=== PATIENT | female | born 1990 | race African-American/Black ===

== ENCOUNTER 2016-10-16 19:32 | Emergency (ER) | payer BC, OTHER ==
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
[2016-10-16 23:32] VITALS: BP 112/65
== END 2016-10-16 23:32 | disposition home or self-care (01) ==
LOC: ER 19:32
DX: M54.2 Cervicalgia (principal); M54.6 Pain in thoracic spine; M54.5 Low back pain; R51 Headache; V44.5XXA Car driver injured in collision with heavy transport vehicle or bus in traffic accident, initial encounter; Y92.410 Unspecified street and highway as the place of occurrence of the external cause; F17.200 Nicotine dependence, unspecified, uncomplicated
CPT/HCPCS: 99284; 87070; 87880; 72110; 72070; 72125; L0120

== ENCOUNTER 2017-01-03 08:31 | Emergency (ER) | payer MEDICAID ==
--- NOTE | 2017-01-03 09:52 | ER Document Report ---
ED Extremity Problem, Lower - General Chief Complaint: Ankle Swelling Stated Complaint: ANKLE SWELLING Mode of Arrival: Ambulatory Information source: Patient TRAVEL OUTSIDE OF THE [place] IN LAST 30 DAYS: No - HPI Notes: Patient arrives with complaints of foot and ankle swelling for approximately one month. She states that it initially was intermittent but now states tends to be constant. Swelling does improve if she elevates her feet. She denies any difficulty with urination. She denies any chest pain or shortness of breath. She denies any known history of congestive heart failure. She denies any pain in the legs. No redness. No history of DVT or PE. Patient also states that she's had some sore nipples for the last few days. She denies any nipple discharge or redness. No injury to the nipples. She denies any abdominal pain. No nausea vomiting diarrhea. No vaginal bleeding or discharge. No rash. Patient denies any other complaints at this - Related Data Allergies/Adverse Reactions: No Known Allergies Allergy (Verified 01/03/17 08:41) Home Medications: Current Home Medications Alprazolam [Xanax] 1 mg PO DAILY 01/03/17 [History] Buprenorphine HCl [Belbuca] 150 mcg BC DAILY 01/03/17 [History] Oxycodone HCl/Acetaminophen [Oxycodone-Acetaminophen 10-325] 1 each PO Q6HP PRN 01/03/17 [History] Past Medical History - Social History Smoking Status: Current Every Day Smoker Chew tobacco use (# tins/day): No Frequency of alcohol use: Rare Drug Abuse: None Family History: Arthritis, Hyperlipidemia, Hypertension, Thyroid Disfunction Patient has suicidal ideation: No Patient has homicidal ideation: No Neurological Medical History: Reports: Hx Migraine - Never been diagnosed as having migraine headaches by [facility] provider Renal/ Medical History: Denies: Hx Peritoneal Dialysis Psychiatric Medical History: Reports: Hx Anxiety, Hx Depression Past Surgical History: Reports: Hx Section - x1 - Immunizations Hx Diphtheria, Pertussis, Tetanus Vaccination: Yes Review of Systems - Review of Systems -: Yes All other systems reviewed and negative Physical Exam - Vital signs Vitals: Temp Pulse Resp BP Pulse Ox 98.4 F 101 H 20 129/84 H 99 01/03/17 08:41 01/03/17 08:41 01/03/17 08:41 01/03/17 08:41 01/03/17 08:41 - General General appearance: Appears well, Alert - HEENT Head: Normocephalic, Atraumatic Eyes: Normal Pupils: PERRL Mucous membranes: Normal Pharynx: Normal - Respiratory Respiratory status: No respiratory distress Breath sounds: Normal - Cardiovascular Rhythm: Regular Heart sounds: Normal auscultation Murmur: No - Abdominal Inspection: Normal Tenderness: Nontender - Extremities General upper extremity: Normal inspection, Nontender, Normal color, Normal ROM , Normal temperature General lower extremity: Normal inspection, Nontender, Edema - +1 edema to the bilateral anterior distal arriaga. No erythema. No calf tenderness., Normal color , Normal ROM, Normal temperature, Normal weight bearing. No: Celina's sign - Neurological Neuro grossly intact: Yes Cognition: Normal Orientation: AAOx4 Charlotte Coma Scale Eye Opening: Spontaneous Charlotte Coma Scale Verbal: Oriented [place] Coma Scale Motor: Obeys Commands Crystal Coma Scale Total: 15 Speech: Normal Motor strength normal: LUE, RUE, LLE, RLE Sensory: Normal - Psychological Associated symptoms: Normal affect, Normal mood - Skin Skin Temperature: Warm Skin Moisture: Dry Skin Color: Normal Notes: Breast exam shows no obvious abnormalities. There is no nipple discharge. No tenderness to palpation of the nipples. No erythema. No mass. Course - Re-evaluation Re-evalutation: 01/03/17 11:13 Patient is nontoxic appearing with stable vitals. Patient arrives with complaints of lower leg swelling for the last several weeks. She does complain some nipple tenderness. Her exam is benign aside from some mild edema to the lower extremities. Hisposterior swelling or tenderness, she has no DVT risk factors. Patient denies any chest pain or shortness of breath. She has benign labs with no signs of renal failure. Her test is negative. No protein in her urine. The patient chest x-ray shows no signs of effusion. The patient will be discharged home with what is likely to be dependent edema. She' ll be instructed to elevate her legs when possible. Follow-up with her primary care doctor at the next available appointment, sooner for worsening swelling, chest pain, shortness of breath, fever, any further concerns. The patient is noted to have elevated blood pressure during today's emergency department visit. The patient was informed of this finding. The patient was instructed that this may be related to pre-hypertension and requires further evaluation with a primary care provider. The patient has no hypertensive symptoms at this time. The patient's emergency department workup and current diagnosis were explained to the patient and or family. Follow-up instructions were provided. Medications if prescribed were discussed. Instructions for when to return to the emergency department including specific worrisome symptoms were discussed with the patient and/or family. - Vital Signs Vital signs: Temp Pulse Resp BP Pulse Ox 98.4 F 101 H 20 129/84 H 99 01/03/17 08:41 01/03/17 08:41 01/03/17 08:41 01/03/17 08:41 01/03/17 08:41 - Laboratory Result Diagrams: 01/03/17 10:42 01/03/17 10:03 Laboratory results interpreted by me: 01/03/17 10:42 Hgb 11.4 L Hct 33.7 L - Diagnostic Test Radiology reviewed: Image reviewed, Reports reviewed - Chest x-ray negative Discharge - Discharge Clinical Impression: Leg edema Qualifiers: Laterality: bilateral Qualified Code(s): R60.0 - Localized edema Condition: Stable Disposition: HOME, SELF-CARE Instructions: Dependent Edema ([facility]) Additional Instructions: Try to elevate your legs as much as possible. Her compression hose. Follow up with your doctor at the next available appointment for reevaluation. Follow-up sooner for increased swelling, chest pain, shortness of breath, fever, redness, any further concerns. Your blood pressure was elevated during today's visit. Have this rechecked with your doctor. Forms: Elevated Blood Pressure
[2017-01-03 10:07] LABS: APPEARANCE,URINE SLIGHTLY-CLOUDY; BILIRUBIN,URINE NEGATIVE (NEGATIVE); GLUCOSE, URINE NEGATIVE (NEGATIVE); KETONES,URINE NEGATIVE (NEGATIVE); LEUKOCYTE ESTERASE,URINE NEGATIVE (NEGATIVE); NITRITE,URINE NEGATIVE (NEGATIVE); PROTEIN,URINE NEGATIVE (NEGATIVE); URINE SPECIFIC GRAVITY 1.024; UROBILINOGEN,URINE NEGATIVE mg/dL (<2.0)
[2017-01-03 10:42] LABS: ALANINE AMINOTRANSFERASE 28 U/L (9-52); ALBUMIN 3.6 g/dL (3.5-5.0); ALKALINE PHOSPHATASE 92 U/L (38-126); ANION GAP 10 (5-19); ASPARTATE AMINO TRANSFERASE 21 U/L (14-36); BILIRUBIN,DIRECT 0.2 mg/dL (0.0-0.4); BILIRUBIN,TOTAL 0.3 mg/dL (0.2-1.3); BLOOD UREA NITROGEN 13 mg/dL (7-20); CALCIUM 9.2 mg/dL (8.4-10.2); CARBON DIOXIDE 25 mmol/L (22-30); CHLORIDE 105 mmol/L (98-107); CREATININE RESULT 0.69 mg/dL (0.52-1.25); GLUCOSE 83 mg/dL (75-110); POTASSIUM 4.4 mmol/L (3.6-5.0); SODIUM 140.3 mmol/L (137-145); TOTAL PROTEIN 6.4 g/dL (6.3-8.2)
[2017-01-03 11:00] LABS: HEMATOCRIT 33.7 % (36.0-47.0); HEMOGLOBIN 11.4 g/dL (12.0-15.5); HGB HCT DIFFERENCE 0.5; MEAN CORPUSCULAR HEMOGLOBIN 29.6 pg (27.0-33.4); MEAN CORPUSCULAR HGB CONC 33.8 g/dL (32.0-36.0); MEAN CORPUSCULAR VOLUME 88 fl (80-97); RED BLOOD COUNT 3.85 10^6/uL (3.72-5.28); RED CELL DISTRIBUTION WIDTH 12.8 % (11.5-14.0); WHITE BLOOD COUNT 7.7 10^3/uL (4.0-10.5)
[2017-01-03 11:31] VITALS: BP 115/64
== END 2017-01-03 11:30 | disposition home or self-care (01) ==
LOC: ER 08:31
DX: R60.0 Localized edema (principal); N64.59 Other signs and symptoms in breast; F17.200 Nicotine dependence, unspecified, uncomplicated; R03.0 Elevated blood-pressure reading, without diagnosis of hypertension
CPT/HCPCS: 36415; 71020; 80053; 81001; 81025; 85027; 99283

== ENCOUNTER 2018-02-01 19:11 | Emergency (ER) | payer MEDICAID ==
[2018-02-01 19:28] VITALS: BP 128/65
--- NOTE | 2018-02-01 20:09 | ER Document Report ---
HPI - HPI Patient complains to provider of: left dry eye, then watered Onset: This afternoon - at work Pain Level: 3 Context: 27 yo contact lens weared female got dry left eye, then watering, then felt like somehing in eye, irritation., rubbed at work. got off work at [employer], took contact out. used cool and comfort drops with contact out, then went to sleep. When woke up it was the same, worse with light, better in the dark. Upper lid swelling Pt put contact back in so she could drive here. Associated Symptoms: None Exacerbated by: Other - rubbing left eye Relieved by: Denies - ROS ROS below otherwise negative: Yes Systems Reviewed and Negative: Yes All other systems reviewed and negative - REPRODUCTIVE Reproductive: DENIES: : Past Medical History - General Information source: Patient - Social History Smoking Status: Unknown if Ever Smoked Frequency of alcohol use: None Drug Abuse: None Lives with: Family Family History: Arthritis, Hyperlipidemia, Hypertension, Thyroid Disfunction Neurological Medical History: Reports: Hx Migraine - Never been diagnosed as having migraine headaches by [facility] provider Renal/ Medical History: Denies: Hx Peritoneal Dialysis Psychiatric Medical History: Reports: Hx Anxiety, Hx Depression Past Surgical History: Reports: Hx Section - x1 - Immunizations Hx Diphtheria, Pertussis, Tetanus Vaccination: Yes Vertical Provider Document - CONSTITUTIONAL Agree With Documented VS: Yes Exam Limitations: No Limitations General Appearance: No Apparent Distress - INFECTION CONTROL TRAVEL OUTSIDE OF THE [place] IN LAST 30 DAYS: No - HEENT HEENT: Conjuctival Injection - left, Normocephalic, PERRLA Notes: fluorescein uptake right eye at 11 oclock, round. corneal ulcer. - NECK Neck: Supple. negative: Lymphadenopathy-Left, Lymphadenopathy-Right Course - Re-evaluation Re-evalutation: 02/01/18 20:56 visual acuity 20/25 each eye 02/01/18 20:56 - Vital Signs Vital signs: Temp Pulse Resp BP Pulse Ox 99.1 F 72 16 128/65 H 99 02/01/18 19:27 02/01/18 19:27 02/01/18 19:27 02/01/18 19:27 02/01/18 19:27 Discharge - Discharge Clinical Impression: Corneal ulcer Qualifiers: Laterality: left Qualified Code(s): H16.002 - Unspecified corneal ulcer, left eye Condition: Good Disposition: HOME, SELF-CARE Instructions: Ketorolac Tromethamine Eye Drops ([facility]), Corneal Ulceration ([facility]) , Eyedrop Use ([facility]) Additional Instructions: no contact in the left eye besivance 1 drop left eye three times per day for 7 days ketoralac 1 drop left eye three times per day for 2 days see your eye doctor on saturday return to er if eye worsens before saturday Forms: Return to Work Referrals: TERRY SIMMONS, OD [NO LOCAL MD] - 02/03/18
[2018-02-01] MEDS ORDERED: TETRACAINE HCL 0.5% OPH SOLN 2 ML OS ONE (20:14)
[2018-02-01] MEDS ORDERED: BESIFLOXACIN HCL 0.6% OPH SUSP 5 ML BOTTLE OS ONE (21:03)
[2018-02-01] MEDS ORDERED: KETOROLAC TROMETHAMINE 0.45% 4 DROP/0.4 ML DROPERETTE OS ONE (21:04)
== END 2018-02-01 21:33 | disposition home or self-care (01) ==
LOC: ER 19:11
DX: H16.002 Unspecified corneal ulcer, left eye (principal); H57.8 Other specified disorders of eye and adnexa
CPT/HCPCS: 99283; J3490

== ENCOUNTER → 2018-06-05 | Outpatient (CLI) | payer SELFPAY ==
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
== END ==
LOC: OD 09:17
PROVIDERS: ATTEND Obstetrics & Gynecology
DX: S66.911A Strain of unspecified muscle, fascia and tendon at wrist and hand level, right hand, initial encounter (principal)

== ENCOUNTER 2019-12-07 17:15 | Emergency (ER) | payer BC ==
[2019-12-07] MEDS ORDERED: ASPIRIN 81 MG TABLET, CHEWABLE PO ONE (17:26)
--- NOTE | 2019-12-07 17:26 | ER Document Report ---
ED Medical Screen (RME) - General Chief Complaint: Chest Pain Stated Complaint: CHEST PAIN Time Seen by Provider: 12/07/19 17:19 Primary Care Provider: MIKE ESCOBAR MD [Primary Care Provider] - Follow up as needed Mode of Arrival: Ambulatory Information source: Patient Notes: 29-year-old female presented to ED for complaint of right chest pain on and off for a week. She states for the last couple hours she has had a squeezing pain level 3 that is not getting better. She stayed up till today it was just kind of a gnawing pain she denies any cough or congestion or any other symptoms. She denies any radiation of the pain. She denies any shortness of breath. She states she does smoke 4 cigarettes a day does not use alcohol or drugs. I have greeted and performed a rapid initial assessment of this patient. A comprehensive ED assessment and evaluation of the patient, analysis of test results and completion of medical decision making process will be conducted by an additional ED providers. TRAVEL OUTSIDE OF THE [place] IN LAST 30 DAYS: No - Related Data Allergies/Adverse Reactions: No Known Allergies Allergy (Verified 02/01/18 19:17) Past Medical History Neurological Medical History: Reports: Hx Migraine - Never been diagnosed as having migraine headaches by [facility] provider Renal/ Medical History: Denies: Hx Peritoneal Dialysis Psychiatric Medical History: Reports: Hx Anxiety, Hx Depression Past Surgical History: Reports: Hx Section - x1 - Immunizations Hx Diphtheria, Pertussis, Tetanus Vaccination: Yes Doctor's Discharge - Discharge Referrals: MIKE ESCOBAR MD [Primary Care Provider] - Follow up as needed
--- NOTE | 2019-12-07 18:18 | RADIOLOGY REPORT (SQ) ---
EXAM DESCRIPTION: CHEST 2 VIEWS COMPLETED DATE/TIME: 12/07/2019 5:37 pm REASON FOR STUDY: chest pain right COMPARISON: 01/03/2017 EXAM PARAMETERS: NUMBER OF VIEWS: two views TECHNIQUE: Digital Frontal and Lateral radiographic views of the chest acquired. RADIATION DOSE: NA LIMITATIONS: none FINDINGS: LUNGS AND PLEURA: No opacities, masses or pneumothorax. No pleural effusion. MEDIASTINUM AND HILAR STRUCTURES: No masses or contour abnormalities. HEART AND VASCULAR STRUCTURES: Heart normal size. No evidence for failure. BONES: No acute findings. HARDWARE: None in the chest. OTHER: No other significant finding. IMPRESSION: NO ACUTE RADIOGRAPHIC FINDING IN THE CHEST. TECHNICAL DOCUMENTATION: JOB ID: [id number] [employer]- All Rights Reserved Reading location - IP/workstation name: [email or web address]
[2019-12-07 18:35] LABS: ABSOLUTE EOSINOPHILS # (AUTO) 0.1 10^3/uL (0.0-0.6); ABSOLUTE LYMPHOCYTES (AUTO) 3.1 10^3/uL (0.5-4.7); ABSOLUTE MONOCYTES (AUTO) 0.5 10^3/uL (0.1-1.4); ABSOLUTE NEUT (AUTO) 4.9 10^3/uL (1.7-8.2); BASOPHILS % (AUTO) 0.2 % (0-2); EOSINOPHILS % (AUTO) 1.2 % (0-6); HEMATOCRIT 37.3 % (36.0-47.0); HEMOGLOBIN 12.7 g/dL (12.0-15.5); LYMPHOCYTES % (AUTO) 36.2 % (13-45); MEAN CORPUSCULAR HEMOGLOBIN 30.7 pg (27.0-33.4); MEAN CORPUSCULAR HGB CONC 33.9 g/dL (32.0-36.0); MEAN CORPUSCULAR VOLUME 90 fl (80-97); MONOCYTES % (AUTO) 5.6 % (3-13); PLATELET COUNT 234 10^3/uL (150-450); RED BLOOD COUNT 4.13 10^6/uL (3.72-5.28); RED CELL DISTRIBUTION WIDTH 12.7 % (11.5-14.0); SEGMENTED NEUTROPHILS % (AUTO) 56.8 % (42-78); TOTAL CELLS COUNTED % (AUTO) 100 %; WHITE BLOOD COUNT 8.6 10^3/uL (4.0-10.5)
[2019-12-07 18:48] LABS: ALBUMIN 4.2 g/dL (3.5-5.0); ALKALINE PHOSPHATASE 74 U/L (38-126); ANION GAP 6 (5-19); ASPARTATE AMINO TRANSFERASE 25 U/L (14-36); BILIRUBIN,DIRECT 0.2 mg/dL (0.0-0.4); BILIRUBIN,TOTAL 0.3 mg/dL (0.2-1.3); BLOOD UREA NITROGEN 14 mg/dL (7-20); CALCIUM 9.3 mg/dL (8.4-10.2); CARBON DIOXIDE 30 mmol/L (22-30); CHLORIDE 104 mmol/L (98-107); GLUCOSE 101 mg/dL (75-110); POTASSIUM 4.2 mmol/L (3.6-5.0); TOTAL PROTEIN 7.5 g/dL (6.3-8.2)
[2019-12-07] MEDS ORDERED: NAPROXEN 250 MG TABLET PO ONE (20:13)
--- NOTE | 2019-12-07 20:15 | ER Document Report ---
ED General - General Chief Complaint: Chest Pain Stated Complaint: CHEST PAIN Time Seen by Provider: 12/07/19 17:19 Primary Care Provider: MIKE ESCOBAR MD [Primary Care Provider] - Follow up as needed Mode of Arrival: Ambulatory Information source: Patient TRAVEL OUTSIDE OF THE [place] IN LAST 30 DAYS: No - HPI Onset: Other - over the last several days Onset/Duration: Gradual Quality of pain: No pain Severity: Mild Pain Level: 1 Associated symptoms: None Exacerbated by: Movement, Other - movement of chest, twisting motion, bending over, coughing, taking deep breaths Relieved by: Remaining still Similar symptoms previously: No Recently seen / treated by doctor: No Notes: 29 year old female with no significant PMH here for several days of right sided chest wall / chest pain which she says started after lifting some heavy boxes. The patient denies fevers, chills, sweats, radiation of chest pain, nausea, vomiting, productive cough. The patient took an aspirin at home without much relief. The patient has no family history of CAD or PE. - Related Data Allergies/Adverse Reactions: No Known Allergies Allergy (Verified 02/01/18 19:17) Past Medical History - General Information source: Patient - Social History Smoking Status: Current Every Day Smoker Chew tobacco use (# tins/day): No Drug Abuse: None Family History: Arthritis, Hyperlipidemia, Hypertension, Thyroid Disfunction Patient has suicidal ideation: No Patient has homicidal ideation: No Neurological Medical History: Reports: Hx Migraine - Never been diagnosed as having migraine headaches by [facility] health provider Renal/ Medical History: Denies: Hx Peritoneal Dialysis Psychiatric Medical History: Reports: Hx Anxiety, Hx Depression Past Surgical History: Reports: Hx Section - x1 - Immunizations Hx Diphtheria, Pertussis, Tetanus Vaccination: Yes Review of Systems - Review of Systems Constitutional: No symptoms reported EENT: No symptoms reported Cardiovascular: Chest pain Respiratory: No symptoms reported Gastrointestinal: No symptoms reported Genitourinary: No symptoms reported Female Genitourinary: No symptoms reported Musculoskeletal: No symptoms reported Skin: No symptoms reported Hematologic/Lymphatic: No symptoms reported Neurological/Psychological: No symptoms reported -: Yes All other systems reviewed and negative Physical Exam - Vital signs Vitals: Temp Pulse Resp BP Pulse Ox 97.8 F 74 18 119/67 99 12/07/19 17:20 12/07/19 17:20 12/07/19 17:20 12/07/19 17:20 12/07/19 17:20 - Notes Notes: GENERAL: Well-appearing, well-nourished and in no acute distress. HEAD: Atraumatic, normocephalic. EYES: Pupils equal round and reactive to light, extraocular movements intact, sclera anicteric, conjunctiva are normal. ENT: Nares patent, oropharynx clear without exudates. Moist mucous membranes. NECK: Normal range of motion, supple without lymphadenopathy or JVD. CHEST: Tender to palpation over right anterior chest wall with no step offs or crepitus. LUNGS: Breath sounds clear to auscultation bilaterally and equal. No wheezes rales or rhonchi. HEART: Regular rate and rhythm without murmurs, rubs or gallops. ABDOMEN: Soft, nontender, normoactive bowel sounds. No guarding, no rebound. No masses appreciated. EXTREMITIES: Normal range of motion, no pitting or edema. No clubbing or cyano sis. NEUROLOGICAL: Cranial nerves II through XII grossly intact. Normal speech, normal gait. PSYCH: Normal mood, normal affect. SKIN: Warm, Dry, normal turgor, no rashes or lesions noted. Course - Re-evaluation Re-evalutation: 12/07/19 20:23 The patient is here for several days of right sided chest pain which seemed to have started after lifting some heavy boxes. Her pain seems musculoskeletal in nature (reproducible with palpation and pain is worse with movement of his chest). The patient's EKG, Chest Xray and Blood Work which were ordered in Triage are all within normal limits and unremarkable. The patient is low risk for ACS and she is PERC negative making PE unlikely. Patient told to use NSAIDs and a heating pad and to follow up with her PCP if symptoms persist. - Vital Signs Vital signs: Temp Pulse Resp BP Pulse Ox 97.8 F 74 18 119/67 99 12/07/19 17:20 12/07/19 17:20 12/07/19 17:20 12/07/19 17:20 12/07/19 17:20 - Laboratory Result Diagrams: 12/07/19 18:07 12/07/19 18:07 - Diagnostic Test Radiology reviewed: Image reviewed, Reports reviewed - EKG Interpretation by Me EKG shows normal: Sinus rhythm, [place], Intervals, QRS Complexes, ST-T Waves Rate: Normal Rhythm: NSR Discharge - Discharge Clinical Impression: Costochondritis Chest pain Qualifiers: Chest pain type: chest pain on breathing Qualified Code(s): R07.1 - Chest pain on breathing Condition: Stable Disposition: HOME, SELF-CARE Instructions: Chest Wall Pain ([facility]), Costochondritis ([facility]), Chest Pain of Unclear Cause ([facility]) Additional Instructions: Use an NSAID (Motrin, Ibuprofen, Aleve, etc.) for your chest wall/chest pain. Also use a heating pad. Follow up with your primary care doctor if symptoms persist. You had blood work, a chest xray, and an EKG here in the ER. Referrals: MIKE ESCOBAR MD [Primary Care Provider] - Follow up as needed
[2019-12-07 20:33] VITALS: BP 108/68
--- NOTE | 2019-12-08 11:49 | EKG REPORT ---
SEVERITY:- NORMAL ECG - SINUS RHYTHM : Confirmed by: Jaswinder Wagner 08-Dec-2019 11:48:56
== END 2019-12-07 20:32 | disposition home or self-care (01) ==
LOC: ER 17:15
DX: M94.0 Chondrocostal junction syndrome [Tietze] (principal); R07.1 Chest pain on breathing; F17.200 Nicotine dependence, unspecified, uncomplicated
CPT/HCPCS: 36415; 71046; 80053; 84484; 84703; 85025; 93005; 93010; 99285

== ENCOUNTER 2020-01-18 23:37 | Emergency (ER) | payer BC ==
[2020-01-19] MEDS ORDERED: KETOROLAC TROMETHAMINE 60 MG/2 ML SDV IM ONE (01:24)
--- NOTE | 2020-01-19 02:15 | RADIOLOGY REPORT (SQ) ---
CLINICAL INDICATION: left sided chest pain. TECHNIQUE: PA and lateral views were obtained of the chest COMPARISON: January 03, 2017. FINDINGS: The cardiomediastinal silhouette is normal. The lungs are grossly clear. No evidence of effusion or pneumothorax. Visualized bones are unremarkable. . IMPRESSION: No evidence of active intrathoracic disease .
--- NOTE | 2020-01-19 03:02 | ER Document Report ---
ED General - General Chief Complaint: Chest Pain Stated Complaint: CHEST PAIN Time Seen by Provider: 01/19/20 01:09 Primary Care Provider: MIKE ESCOBAR MD [Primary Care Provider] - Follow up as needed TRAVEL OUTSIDE OF THE [place] IN LAST 30 DAYS: No - HPI Notes: Patient is a 29-year-old female who presents to the emergency department for evaluation of chest pain. She states this started about 2100 tonight after work. She described it as a tight and grabbing pain that lasts a few seconds in her left chest. It does not radiate. She states she has had some associated shortness of breath occasionally, had 1 wave of nausea earlier. She states she has had about 6 episodes since this started. She denies any recent travel. She is not on oral contraceptives. She has no family history of blood clots. She denies any prolonged immobilization, history of cancer, or recent surgeries. - Related Data Allergies/Adverse Reactions: No Known Allergies Allergy (Verified 02/01/18 19:17) Home Medications: Xanax Past Medical History - General Information source: Patient - Social History Smoking Status: Current Every Day Smoker Frequency of alcohol use: None Drug Abuse: None Family History: Arthritis, Hyperlipidemia, Hypertension, Thyroid Disfunction Patient has suicidal ideation: No Patient has homicidal ideation: No Neurological Medical History: Reports: Hx Migraine - Never been diagnosed as having migraine headaches by [facility] provider Renal/ Medical History: Denies: Hx Peritoneal Dialysis Psychiatric Medical History: Reports: Hx Anxiety, Hx Depression Past Surgical History: Reports: Hx Section - x1 - Immunizations Hx Diphtheria, Pertussis, Tetanus Vaccination: Yes Review of Systems - Review of Systems Cardiovascular: See HPI Respiratory: See HPI Gastrointestinal: See HPI -: Yes All other systems reviewed and negative Physical Exam - Vital signs Vitals: Temp Pulse Resp BP Pulse Ox 99.1 F 66 16 111/72 100 01/18/20 23:53 01/18/20 23:53 01/18/20 23:53 01/18/20 23:53 01/18/20 23:53 - Notes Notes: Vital signs reviewed, please refer to chart. Head is normocephalic, atraumatic. Pupils equal round, reactive to light. Neck is supple without meningismus. Heart is regular rate and rhythm. Lungs are clear to auscultation bilaterally. No obvious abnormality noted to visual inspection of chest wall. Patient is markedly tender in the area of her pain, both anterior and posteriorly. No subcutaneous emphysema. Chest wall excursion is equal bilaterally. Abdomen is soft, nontender, normoactive bowel sounds throughout. Extremities without cyanosis, clubbing. Posterior calves are nontender. Peripheral pulses are equal. Skin is warm and dry. Patient is awake, alert, neurological exam is nonfocal. Course - Re-evaluation Re-evalutation: 01/19/20 03:00 Patient presents to the emergency department for evaluation. She complains of chest pain, it has only smoking and mild obesity as risk factors. She is told to quit smoking, try to mitigate her risks as much as possible. At any rate, her pain certainly does not sound cardiac. It is reproducible with palpation. She is given anti-inflammatories. Chest x-ray and EKG are unremarkable. She is to follow-up with primary care, return to the ER with worsening or new concerning symptoms of any sort. - Vital Signs Vital signs: Temp Pulse Resp BP Pulse Ox 99.1 F 66 16 111/72 100 01/18/20 23:53 01/18/20 23:53 01/18/20 23:53 01/18/20 23:53 01/18/20 23:53 - Diagnostic Test Radiology reviewed: Reports reviewed Radiology results interpreted by me: 01/19/20 03:01 Chest X-Ray 01/19/20 01:24 IMPRESSION: No evidence of active intrathoracic disease . - EKG Interpretation by Me Additional EKG results interpreted by me: 01/19/20 03:03 Normal sinus rhythm with rate of 68 bpm. Normal axis and intervals. No acute ST changes concerning for ischemia or infarction. No acute change when compared to prior study earlier this year. Discharge - Discharge Clinical Impression: Chest wall pain Condition: Stable Disposition: HOME, SELF-CARE Instructions: Anti-Inflammatory Medication ([facility]), Chest Wall Pain ([facility]) Additional Instructions: Your EKG and chest x-ray here today were unremarkable. It is likely that your pain is from your chest wall. Please follow-up with your primary care provider this week. Take medication as prescribed, preferably with food. Return to the emergency department with worsening or new concerning symptoms of any sort. Prescriptions: Naproxen [Naprosyn] 500 mg PO BID #20 tablet Referrals: MIKE ESCOBAR MD [Primary Care Provider] - Follow up as needed
[2020-01-19 03:25] VITALS: BP 102/59
--- NOTE | 2020-01-20 07:25 | EKG REPORT ---
SEVERITY:- NORMAL ECG - SINUS RHYTHM : Confirmed by: Jaswinder Wagner 20-Jan-2020 07:24:47
== END 2020-01-19 03:19 | disposition home or self-care (01) ==
LOC: ER 23:37
DX: R07.89 Other chest pain (principal); R11.0 Nausea; R06.02 Shortness of breath; F41.9 Anxiety disorder, unspecified; F17.200 Nicotine dependence, unspecified, uncomplicated; E66.9 Obesity, unspecified; Z79.899 Other long term (current) drug therapy
CPT/HCPCS: 99284; 96372; 71046; J1885; 93005; 93010